=== PATIENT | female | born 1990 | race American Indian/Alaskan Native ===

== ENCOUNTER 2018-10-06 02:04 | Emergency (ER) | payer SELFPAY ==
--- NOTE | 2018-10-06 02:56 | Emergency Department Report ---
ED Female HPI - General Chief complaint: Vaginal Bleeding Stated complaint: 5WKS POST /BLEEDING EXCESSIVELY W/BLOOD CLOT Time Seen by Provider: 10/06/18 02:45 Source: patient Mode of arrival: Ambulatory Limitations: No Limitations - History of Present Illness Initial comments: 28-year-old female presents to ED with vaginal bleeding. Patient is 5 weeks following spontaneous vaginal delivery. Patient states she began having vaginal bleeding a few days ago, and figured it was her period. Patient states tonight she began bleeding very heavily, states filled out a large pad in 30 minutes. Patient states prior to her she would have very heavy menstrual periods. Patient denies abdominal pain. MD Complaint: vaginal bleeding -: Last night Severity: moderate Improves with: none Worsens with: none Are you Now?: No Associated Symptoms: vaginal bleeding. denies: abdominal pain, shortness of breath, syncope, weakness - Related Data Allergies Allergy/AdvReac Type Severity Reaction Status Date / Time No Known Allergies Allergy Unverified 10/06/18 02:06 ED Review of Systems ROS: Stated complaint: 5WKS POST /BLEEDING EXCESSIVELY W/BLOOD CLOT Other details as noted in HPI Comment: All other systems reviewed and negative Constitutional: denies: chills, fever Respiratory: denies: shortness of breath Cardiovascular: denies: chest pain Gastrointestinal: denies: abdominal pain Genitourinary: other (reports heavy vag bleeding) ED Past Medical Hx - Past Medical History Previous Medical History?: No - Surgical History Past Surgical History?: No - Social History Smoking Status: Never Smoker Substance Use Type: None ED Physical Exam - General Limitations: No Limitations General appearance: alert, in no apparent distress - Head Head exam: Present: atraumatic, normocephalic - Eye Eye exam: Present: normal appearance - ENT ENT exam: Present: mucous membranes moist - Neck Neck exam: Present: normal inspection - Respiratory Respiratory exam: Present: normal lung sounds bilaterally. Absent: respiratory distress - Cardiovascular Cardiovascular Exam: Present: regular rate, normal rhythm - GI/Abdominal GI/Abdominal exam: Present: soft. Absent: distended, tenderness - Speculum exam: Present: vaginal bleeding (moderate w/ clots) - Extremities Exam Extremities exam: Present: normal inspection - Neurological Exam Neurological exam: Present: alert, oriented X3 - Psychiatric Psychiatric exam: Present: normal affect, normal mood - Skin Skin exam: Present: warm, dry, intact, normal color ED Course Vital Signs 10/06/18 10/06/18 10/06/18 02:11 02:46 03:00 Temperature 98.9 F Pulse Rate 79 57 L 63 Respiratory 18 19 12 Rate Blood Pressure 138/78 123/58 123/58 O2 Sat by Pulse 98 100 100 Oximetry ED Medical Decision Making - Lab Data Result diagrams: 10/06/18 03:22 - Medical Decision Making Patient is 5 weeks with vaginal bleeding. History of heavy menses prior to her . This is likely the patient's first period since her . Vitals are normal, hemoglobin, platelets, coags normal. Patient given return precautions. 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 - Differential Diagnosis anemia, menstrual period Critical care attestation.: If time is entered above; I have spent that time in minutes in the direct care of this critically ill patient, excluding procedure time. ED Disposition Clinical Impression: Vaginal bleeding Disposition: - TO HOME OR SELFCARE Is pt being admited?: No Condition: Stable Instructions: Bleeding (ED) Referrals: PRIMARY CARE, [Referring] - 3-5 Days Time of Disposition: 04:24
[2018-10-06 03:51] LABS: Basophils % (Auto) 0.7 % (0.0-1.8); Eosinophils # (Auto) 0.2 K/mm3 (0.0-0.4); Eosinophils % (Auto) 5.1 % (0.0-4.3); Hematocrit 40.2 % (30.3-42.9); Hemoglobin 13.8 gm/dl (10.1-14.3); Lymphocytes # (Auto) 1.9 K/mm3 (1.2-5.4); Lymphocytes % (Auto) 41.2 % (13.4-35.0); Mean Corpuscular HGB Conc 35 % (30-34); Mean Corpuscular Hemoglobin 30 pg (28-32); Mean Corpuscular Volume 86 fl (79-97); Monocytes # (Auto) 0.4 K/mm3 (0.0-0.8); Monocytes % (Auto) 8.9 % (0.0-7.3); Platelet Count 135 K/mm3 (140-440); Red Blood Count 4.67 M/mm3 (3.65-5.03); Red Cell Distribution Width 13.8 % (13.2-15.2)
[2018-10-06 03:55] LABS: INR 0.99 (0.87-1.13)
[2018-10-06 03:56] LABS: Partial Thromboplastin Time 29.2 Sec. (24.2-36.6)
[2018-10-06 04:36] VITALS: BP 116/68
== END 2018-10-06 04:42 | disposition home or self-care (01) ==
LOC: ED 02:04
DX: N93.9 Abnormal uterine and vaginal bleeding, unspecified (principal)
CPT/HCPCS: 36415; 85025; 85610; 85730